=== PATIENT | male | born 1985 ===

== ENCOUNTER 2018-06-17 11:54 | Emergency (ER) | payer SELFPAY ==
[2018-06-17 12:19] VITALS: RESP 18
[2018-06-17] MEDS ORDERED: Sodium Chloride 0.9% 1,000 ML IV ONE (13:03)
--- NOTE | 2018-06-17 13:21 | C.PDOC ---
History Of Present Illness 33 year old male presents to the ED for evaluation of abdominal pain. Patient reports pain is diffuse and has been radiating to his both sides of his back for the past two weeks. 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 He denies fever, chills, vomiting, diarrhea. Time Seen by Provider: 06/17/18 12:34 Chief Complaint (Nursing): Abdominal Pain History Per: Patient History/Exam Limitations: no limitations Onset/Duration Of Symptoms: Other (two weeks ) Current Symptoms Are (Timing): Still Present Location Of Pain/Discomfort: Diffuse Radiation Of Pain To:: None Quality Of Discomfort: "Pain" Associated Symptoms: denies: Fever, Chills, Vomiting, Diarrhea Exacerbating Factors: None Past Medical History Reviewed: Historical Data, Nursing Documentation, Vital Signs Vital Signs: Last Vital Signs Temp 98.4 F 06/17/18 12:16 Pulse 62 06/17/18 12:16 Resp 18 06/17/18 12:16 BP 129/88 06/17/18 12:16 Pulse Ox 95 06/17/18 12:16 - Medical History PMH: No Chronic Diseases Surgical History: No Surg Hx Family History: States: Unknown Family Hx - Social History Hx Alcohol Use: Yes Hx Substance Use: No - Immunization History Hx Tetanus Toxoid Vaccination: No Hx Influenza Vaccination: No Hx Pneumococcal Vaccination: No Review Of Systems Constitutional: Negative for: Fever, Chills Gastrointestinal: Positive for: Nausea, Abdominal Pain. Negative for: Vomiting, Diarrhea Musculoskeletal: Positive for: Back Pain Physical Exam - Physical Exam Appears: Non-toxic, No Acute Distress Skin: Normal Color, Warm, Dry Head: Atraumatic, Normacephalic Eye(s): bilateral: Normal Inspection Oral Mucosa: Moist Neck: Supple Chest: Symmetrical, No Deformity, No Tenderness Cardiovascular: Rhythm Regular, No Murmur Respiratory: Normal Breath Sounds, No Rales, No Rhonchi, No Wheezing Gastrointestinal/Abdominal: Soft, Tenderness (diffuse ), No Guarding, No Rebound Extremity: Normal ROM, Capillary Refill (less than 2 seconds ) Neurological/Psych: Oriented x3, Normal Speech, Normal Cognition Gait: Steady ED Course And Treatment - Laboratory Results Result Diagrams: 06/17/18 13:29 06/17/18 13:29 Lab Interpretation: Normal O2 Sat by Pulse Oximetry: 95 (on RA ) Pulse Ox Interpretation: Normal - CT Scan/US No standard instances Other Rad Studies (CT/US): Read By Radiologist, Radiology Report Reviewed CT/US Interpretation: FINDINGS: LOWER THORAX: No evidence of acute pathology. LIVER: Unr Tra genius low-attenuation liver noted which could be due to fatty liver infiltration versus liver parenchymal disease. The liver is mildly enlarged. GALLBLADDER AND BILE DUCTS: No evidence of acute cholecystitis. PANCREAS: Unremarkable. No gross lesion or ductal dilatation. SPLEEN: Unremarkable. ADRENALS: Unremarkable. No mass. KIDNEYS AND URETERS: Unremarkable. No hydronephrosis. No solid mass. VASCULATURE: Unremarkable. No aortic aneurysm. No aortic atherosclerotic calcification or mural plaque present. BOWEL: Suspicious for left colon wall thickening versus incomplete distention. The possibility of colitis cannot be excluded.. The stomach is not fully distended therefore cannot be evaluated. There is a small hiatus hernia versus distal esophagus wall thickening. APPENDIX: Unremarkable. Normal appendix. PERITONEUM: Unremarkable. No free fluid. No free air. LYMPH NODES: Unremarkable. No enlarged lymph nodes. BLADDER: Unremarkable. REPRODUCTIVE: Unr the prostate and seminal vesicles are mildly enlarged. BONES: No acute fracture. OTHER FINDINGS: None. IMPRESSION: No evidence of nephrolithiasis or hydronephrosis. Left colon wall thickening versus incomplete distention. The possibility of colitis is not totally excluded. Heterogeneous mildly enlarged liver. Progress Note: Bloodwork, urinalysis, CT A/P ordered and reviewed. Toradol IVP and IV Fluids given. 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 - Scribe Statement The provider has reviewed the documentation as recorded by the Scribe (Key Felton) All medical record entries made by the Scribe were at my direction and personally dictated by me. I have reviewed the chart and agree that the record accurately reflects my personal performance of the history, physical exam, medical decision making, and the department course for this patient. I have also personally directed, reviewed, and agree with the discharge instructions and disposition.
[2018-06-17 13:36] LABS: BASO # 0.1 K/uL (0.0-0.2); BASO % 0.8 % (0.0-2.0); EOS # 0.2 K/uL (0.0-0.7); EOS % 1.8 % (0.0-4.0); HEMOGLOBIN 15.4 g/dL (12.0-18.0); LYMPH # 2.1 K/uL (1.0-4.3); LYMPH % 23.9 % (20.0-40.0); MEAN CELL VOLUME 91.7 fL (80.0-94.0); MEAN CORPUSCULAR HEMOGLOBIN 30.5 pg (27.0-31.0); MEAN CORPUSCULAR HGB CONC 33.3 g/dL (33.0-37.0); MEAN PLATELET VOLUME 7.7 fL (7.2-11.7); MONO # 0.6 K/uL (0.0-0.8); MONO % 6.6 % (0.0-10.0); NEUT % 66.9 % (50.0-75.0); NRBC % 0.2 % (0.0-2.0); RBC 5.03 Mil/uL (4.40-5.90); RED CELL DISTRIBUTION WIDTH 13.3 % (11.5-14.5)
[2018-06-17 13:46] LABS: ALB/GLOB RATIO 1.3 (1.0-2.1); ALT/SGPT 126 U/L (21-72); AST/SGOT 80 U/L (17-59); BLOOD UREA NITROGEN 14 mg/dL (9-20); CALCIUM 9.5 mg/dl (8.6-10.4); GFR NON-AFRICAN AMERICAN > 60
[2018-06-17] MEDS ORDERED: Sodium Chloride 0.9% 1,000 ML ONE (13:52)
--- NOTE | 2018-06-17 14:24 | CT ---
Date of service: 06/17/2018 PROCEDURE: CT Abdomen and Pelvis without intravenous contrast HISTORY: Pain COMPARISON: None. TECHNIQUE: Axial and reformatted coronal and sagittal CT images of the abdomen and pelvis were obtained without IV or oral contrast administration Contrast dose: 0 Radiation dose: Total exam DLP = 674.67 mGy-cm. This CT exam was performed using one or more of the following dose reduction techniques: Automated exposure control, adjustment of the mA and/or kV according to patient size, and/or use of iterative reconstruction technique. FINDINGS: LOWER THORAX: No evidence of acute pathology. LIVER: Unr Tra genius low-attenuation liver noted which could be due to fatty liver infiltration versus liver parenchymal disease. The liver is mildly enlarged. GALLBLADDER AND BILE DUCTS: No evidence of acute cholecystitis. PANCREAS: Unremarkable. No gross lesion or ductal dilatation. SPLEEN: Unremarkable. ADRENALS: Unremarkable. No mass. KIDNEYS AND URETERS: Unremarkable. No hydronephrosis. No solid mass. VASCULATURE: Unremarkable. No aortic aneurysm. No aortic atherosclerotic calcification or mural plaque present. BOWEL: Suspicious for left colon wall thickening versus incomplete distention. The possibility of colitis cannot be excluded.. The stomach is not fully distended therefore cannot be evaluated. There is a small hiatus hernia versus distal esophagus wall thickening. APPENDIX: Unremarkable. Normal appendix. PERITONEUM: Unremarkable. No free fluid. No free air. LYMPH NODES: Unremarkable. No enlarged lymph nodes. BLADDER: Unremarkable. REPRODUCTIVE: Unr the prostate and seminal vesicles are mildly enlarged. BONES: No acute fracture. OTHER FINDINGS: None. IMPRESSION: No evidence of nephrolithiasis or hydronephrosis. Left colon wall thickening versus incomplete distention. The possibility of colitis is not totally excluded. Heterogeneous mildly enlarged liver.
[2018-06-17 14:25] LABS: URINE BILIRUBIN NEGATIVE (NEGATIVE); URINE BLOOD NEGATIVE (NEGATIVE); URINE CLARITY Clear (Clear); URINE COLOR Yellow (YELLOW); URINE GLUCOSE (UA) NORMAL (Normal); URINE LEUKOCYTE ESTERASE NEG Leu/uL (Negative); URINE PROTEIN NEGATIVE (NEGATIVE); URINE UROBILINOGEN NORMAL mg/dL (0.2-1.0)
[2018-06-17 15:11] VITALS: BP 124/78; PULSE 68; TEMP 98.6
[2018-06-17 15:16] VITALS: O2SAT 95
== END 2018-06-17 15:17 | disposition home or self-care (01) ==
LOC: C.ER 11:54
DX: R10.9 Unspecified abdominal pain (principal)
CPT/HCPCS: 74176; 80053; 81001; 85025; 96361; 96374; 99284; J1885; J7030